=== PATIENT | male | born 1965 | race American Indian/Alaskan Native ===

== ENCOUNTER 2017-09-04 20:30 | Emergency (ER) | payer OTHER ==
[2017-09-04 20:59] VITALS: BMI 24.4
[2017-09-04 21:54] LABS: BASO # 0.02 K/mm3 (0.0-2.0); BASO % 0.3 % (0.0-3.0); EOS # 0.1 (0.0-0.7); GRAN # 4.81 (1.4-6.5); GRAN % 61.1 % (50.0-68.0); LYMPH # 2.5 (1.2-3.4); LYMPH % 31.1 % (22.0-35.0); MEAN CORPUSCULAR HEMOGLOBIN 26.5 pg (25.0-35.0); MEAN CORPUSCULAR HGB CONC 33.5 g/dl (31.0-37.0); MEAN PLATELET VOLUME 9.1 fl (7.0-11.0); MONO # 0.5 (0.1-0.6); MONO % 6.5 % (1.0-6.0); RBC 5.29 10^6/uL (3.5-6.1); RED CELL DISTRIBUTION WIDTH 15.8 % (11.5-14.5); WHITE BLOOD COUNT 7.9 10^3/ul (4.5-11.0)
[2017-09-04 22:04] LABS: ACETAMINOPHEN < 10.0 ug/ml (10.0-20.0); SALICYLATE < 1 mg/dL (2.0-20.0)
[2017-09-04 22:10] LABS: ALBUMIN 4.3 g/dL (3.0-4.8); ALT/SGPT 59 U/L (7-56); AST/SGOT 46 U/L (17-59); BLOOD UREA NITROGEN 16 mg/dL (7-21); CALCIUM 9.2 mg/dL (8.4-10.5); GFR AFRICAN-AMERICAN > 60; GFR NON-AFRICAN AMERICAN > 60
[2017-09-04] MEDS ORDERED: Potassium Chloride 20 mEq ER Tab PO STA (22:16)
--- NOTE | 2017-09-05 03:51 | ED PDOC ---
Arrival/HPI - General Chief Complaint: Anxiety Time Seen by Provider: 09/04/17 21:04 Historian: Patient - History of Present Illness Narrative History of Present Illness (Text): 09/05/17 03:48 52 year old male, with no significant past medical history, who presents to the emergency department set by PMD for psychiatric evaluation. Patient states he hasn't been able sleep for 3 days. Patient states a "guardian is protecting him ". Patient denies any fever, chills, chest pain, shortness of breath, nausea, vomiting, diarrhea, back pain, neck pain, headache, dizziness, suicidal ideation , homicidal ideation, hallucination, or any other complaints. Time/Duration: < week (3 days) Symptom Onset: Gradual Symptom Course: Unchanged Activities at Onset: Light Context: Home Past Medical History - Provider Review Nursing Documentation Reviewed: Yes - Cardiac Hx Hypertension: Yes - Psychiatric Hx Anxiety: Yes Hx Substance Use: No - Suicidal Assessment Feels Threatened In Home Enviroment: No Family/Social History - Physician Review Nursing Documentation Reviewed: Yes Family/Social History: Unknown Family HX Smoking Status: Light Smoker < 10 Cigarettes Daily Hx Alcohol Use: No Hx Substance Use: No Hx Substance Use Treatment: No Allergies/Home Meds Allergies/Adverse Reactions: Allergies JEF Inhibitors Allergy (Verified 09/04/17 21:00) SHORTNESS OF BREATH Home Medications: Home Meds Medication Instructions Recorded Confirmed Aspirin 81 mg PO DAILY 04/17/14 09/04/17 Clonidine HCl [Catapres] 0.3 mg PO TID 04/17/14 09/04/17 Hydrochlorothiazide 25 mg PO DAILY 04/17/14 09/04/17 Review of Systems - Physician Review All systems were reviewed & negative as marked: Yes - Review of Systems Constitutional: Normal Eyes: Normal ENT: Normal Respiratory: Normal. absent: SOB, Cough Cardiovascular: Normal. absent: Chest Pain Gastrointestinal: Normal. absent: Abdominal Pain, Diarrhea, Nausea, Vomiting Genitourinary Male: Normal. absent: Dysuria, Frequency, Hematuria, Urinary Output Changes Musculoskeletal: Normal. absent: Back Pain, Neck Pain Skin: Normal. absent: Rash Neurological: Normal. absent: Headache, Dizziness Endocrine: Normal Hemo/Lymphatic: Normal Psychiatric: Other (Insomnia) Physical Exam Vital Signs Reviewed: Yes Vital Signs Temp Pulse Resp BP Pulse Ox 09/05/17 01:00 82 16 158/88 H 100 05/19/18 00:05 84 202/100 H 09/04/17 23:52 84 202/100 H 09/04/17 21:04 98.3 F 91 H 16 173/118 H 100 Temperature: Afebrile Blood Pressure: Hypertensive Pulse: Regular Respiratory Rate: Normal Appearance: Positive for: Well-Appearing, Non-Toxic, Comfortable Pain Distress: None Mental Status: Positive for: Alert and Oriented X 3 - Systems Exam Head: Present: Atraumatic, Normocephalic Pupils: Present: PERRL Extroacular Muscles: Present: EOMI Conjunctiva: Present: Normal Mouth: Present: Moist Mucous Membranes Neck: Present: Normal Range of Motion Respiratory/Chest: Present: Clear to Auscultation, Good Air Exchange. No: Respiratory Distress, Accessory Muscle Use Cardiovascular: Present: Regular Rate and Rhythm, Normal S1, S2. No: Murmurs Abdomen: No: Tenderness, Distention, Peritoneal Signs Back: Present: Normal Inspection Upper Extremity: Present: Normal Inspection. No: Cyanosis, Edema Lower Extremity: Present: Normal Inspection. No: Edema Neurological: Present: GCS=15, CN II-XII Intact. No: Speech Normal (Speech is pressured) Skin: Present: Warm, Dry, Normal Color. No: Rashes Psychiatric: Present: Alert, Oriented x 3, Normal Insight, Normal Concentration Medical Decision Making ED Course and Treatment: 09/05/17 03:53 Impression: 52 year old male presents to the emergency department sent in by PMD for psychiatric evaluation. Plan: -- EKG -- Chest X-ray -- Catapres -- Ativan --Potassium Chloride -- Urinalysis -- Reassess and disposition Progress Notes: Patient is medically cleared. Chest X-ray Reviewed, shows negative results. - Lab Interpretations Lab Results: 09/04/17 21:44 09/04/17 21:44 Lab Results 09/04/17 21:44: Alcohol, Quantitative < 10 09/04/17 21:44: Salicylates < 1 L, Acetaminophen < 10.0 L 09/04/17 21:44: Sodium 147, Potassium 3.1 L, Chloride 103, Carbon Dioxide 32, Anion Gap 16, BUN 16, Creatinine 1.1, Est GFR ( Amer) > 60, Est GFR (Non- Af Amer) > 60, Random Glucose 92, Calcium 9.2, Total Bilirubin 0.4, AST 46, ALT 59 H, Alkaline Phosphatase 85, Total Protein 8.5 H, Albumin 4.3, Globulin 4.2, Albumin/Globulin Ratio 1.0 L 09/04/17 21:44: WBC 7.9, RBC 5.29, Hgb 14.0, Hct 41.8 L, MCV 79.0 L, MCH 26.5, MCHC 33.5, RDW 15.8 H, Plt Count 364, MPV 9.1, Gran % 61.1, Lymph % (Auto) 31.1 , [place] % (Auto) 6.5 H, Eos % (Auto) 1.0 L, Baso % (Auto) 0.3, Gran # 4.81, Lymph # (Auto) 2.5, [place] # (Auto) 0.5, Eos # (Auto) 0.1, Baso # (Auto) 0.02 - RAD Interpretation Radiology Orders: 09/05/17 03:13 CHEST PORTABLE [RAD] Stat - Medication Orders Current Medication Orders: Discontinued Medications Clonidine HCl (Catapres) 0.2 mg PO STAT STA Stop: 09/04/17 23:53 Last Admin: 09/05/17 00:05 Dose: 0.2 mg MAR Pulse and Blood Pressure Document 09/05/17 00:05 VIKTORIA (Rec: 09/05/17 00:10 VIKTORIA [id number]) Pulse Pulse Rate (60-90) 84 Blood Pressure Blood Pressure (100/60-150/90) 202/100 Lorazepam (Ativan) 1 mg PO STAT STA PRN Reason: Protocol Stop: 09/04/17 23:39 Last Admin: 09/04/17 23:45 Dose: 1 mg Potassium Chloride (K-Dur 20 Meq Er Tab) 40 meq PO STAT STA Stop: 09/04/17 22:17 Last Admin: 09/04/17 22:42 Dose: 40 meq - Transfer of Care Patient signed out to Dr:: Donte Other: [facility] screening - Scribe Statement The provider has reviewed the documentation as recorded by the Scribe Agnes Piña All medical record entries made by the Scribe were at my direction and personally dictated by me. I have reviewed the chart and agree that the record accurately reflects my personal performance of the history, physical exam, medical decision making, and the department course for this patient. I have also personally directed, reviewed, and agree with the discharge instructions and disposition. Disposition/Present on Arrival - Present on Arrival Any Indicators Present on Arrival: No History of DVT/PE: No History of Uncontrolled Diabetes: No Urinary Catheter: No History of Decub. Ulcer: No History Surgical Site Infection Following: None - Disposition Have Diagnosis and Disposition been Completed?: Yes Diagnosis: Acute psychosis Disposition Time: 07:00 Condition: STABLE Referrals: Bruce Romo MD [Primary Care Provider] - Follow up with primary Forms: [employer] (Thai)
--- NOTE | 2017-09-05 10:27 | RAD ---
HISTORY: medical clearance COMPARISON: No prior. FINDINGS: LUNGS: No active pulmonary disease. PLEURA: No significant pleural effusion identified, no pneumothorax apparent. CARDIOVASCULAR: No radiographic findings to suggest acute or significant cardiovascular disease. OSSEOUS STRUCTURES: No significant abnormalities. VISUALIZED UPPER ABDOMEN: Normal. OTHER FINDINGS: None. IMPRESSION: No active disease.
--- NOTE | 2017-09-05 12:52 | ED PDOC ---
Physical Exam Vital Signs Reviewed: Yes Vital Signs Temp Pulse Resp BP Pulse Ox 09/05/17 12:11 83 183/107 H 09/05/17 12:01 83 18 183/107 H 98 09/05/17 10:47 76 18 151/78 H 98 09/05/17 08:43 76 16 152/80 H 98 09/05/17 01:00 82 16 158/88 H 100 09/05/17 00:05 84 202/100 H 09/04/17 23:52 84 202/100 H 09/04/17 21:04 98.3 F 91 H 16 173/118 H 100 Temperature: Afebrile Blood Pressure: Normal Pulse: Regular Respiratory Rate: Normal Appearance: Positive for: Well-Appearing, Non-Toxic, Comfortable Pain Distress: None Mental Status: Positive for: Alert and Oriented X 3 - Systems Exam Head: Present: Atraumatic, Normocephalic Pupils: Present: PERRL Extroacular Muscles: Present: EOMI Conjunctiva: Present: Normal Mouth: Present: Moist Mucous Membranes Neck: Present: Normal Range of Motion Respiratory/Chest: Present: Clear to Auscultation, Good Air Exchange. No: Respiratory Distress, Accessory Muscle Use Cardiovascular: Present: Regular Rate and Rhythm, Normal S1, S2. No: Murmurs Abdomen: No: Tenderness, Distention, Peritoneal Signs Back: Present: Normal Inspection Upper Extremity: Present: Normal Inspection. No: Cyanosis, Edema Lower Extremity: Present: Normal Inspection. No: Edema Neurological: Present: GCS=15, CN II-XII Intact, Speech Normal, Motor Func Grossly Intact, Normal Sensory Function, Normal Cerebellar Funct, Norm Deep Tendon Reflexes, Gait Normal, Memory Normal, Normal 2Pt Descrimination Skin: Present: Warm, Dry, Normal Color. No: Rashes Psychiatric: Present: Alert, Oriented x 3, Normal Insight, Normal Concentration Medical Decision Making ED Course and Treatment: 52 y/o male w/ pmhx of anxiety , HTn presents evidently w/ paranoid ideation ststements and questiobale homicidal ideation as per inital FAVIAN fuentesnner who saw him upon his arrival. Pt continues to deny any si/ah/vh /hi / corporeal complaint and doesn't understad why his pmd sent him for evaluation and he's refusing to give ua / utox as part of his medical clearance workup , stating that this is actually against his cheondoism beliefs. Pt lacks insight as to his statements that led to his disposition here and denies them . Dr. Bloom and PES worker were informed of his ststements and his refusal , and have given their ok to accept patient to [facility] as long as his refusal is documented and faxed to [facility]. Then suddenly patiently relented and stted that he would give urine for examination. Pt remains on 1:1 observation , has been fed, and has his regular medicines on regular dosing schedule. 09/05/17 12:42 09/06/17 07:31 [facility] screened patient and patient was psychiatrically cleared for discharge and discharged with resources. - Lab Interpretations Lab Results: 09/04/17 21:44 09/04/17 21:44 Lab Results 09/04/17 21:44: Alcohol, Quantitative < 10 09/04/17 21:44: Salicylates < 1 L, Acetaminophen < 10.0 L 09/04/17 21:44: Sodium 147, Potassium 3.1 L, Chloride 103, Carbon Dioxide 32, Anion Gap 16, BUN 16, Creatinine 1.1, Est GFR ( Amer) > 60, Est GFR (Non- Af Amer) > 60, Random Glucose 92, Calcium 9.2, Total Bilirubin 0.4, AST 46, ALT 59 H, Alkaline Phosphatase 85, Total Protein 8.5 H, Albumin 4.3, Globulin 4.2, Albumin/Globulin Ratio 1.0 L 09/04/17 21:44: WBC 7.9, RBC 5.29, Hgb 14.0, Hct 41.8 L, MCV 79.0 L, MCH 26.5, MCHC 33.5, RDW 15.8 H, Plt Count 364, MPV 9.1, Gran % 61.1, Lymph % (Auto) 31.1 , [place] % (Auto) 6.5 H, Eos % (Auto) 1.0 L, Baso % (Auto) 0.3, Gran # 4.81, Lymph # (Auto) 2.5, [place] # (Auto) 0.5, Eos # (Auto) 0.1, Baso # (Auto) 0.02 - RAD Interpretation Radiology Orders: 09/05/17 03:13 CHEST PORTABLE [RAD] Stat - Medication Orders Current Medication Orders: Discontinued Medications Amlodipine Besylate (Norvasc) 10 mg PO STAT STA Stop: 09/05/17 12:07 Last Admin: 09/05/17 12:11 Dose: 10 mg MAR Blood Pressure Document 09/05/17 12:11 [facility] (Rec: 09/05/17 12:11 [facility] [id number]) Blood Pressure Blood Pressure (100/60-150/90 mm Hg) 183/107 Clonidine HCl (Catapres) 0.2 mg PO STAT STA Stop: 09/04/17 23:53 Last Admin: 09/05/17 00:05 Dose: 0.2 mg MAR Pulse and Blood Pressure Document 09/05/17 00:05 VIKTORIA (Rec: 09/05/17 00:10 VIKTORIA [id number]) Pulse Pulse Rate (60-90 beats/min) 84 Blood Pressure Blood Pressure (100/60-150/90 mm Hg) 202/100 Clonidine HCl (Catapres) 0.3 mg PO ONCE ONE Stop: 09/05/17 12:05 Last Admin: 09/05/17 12:11 Dose: 0.3 mg MAR Pulse and Blood Pressure Document 09/05/17 12:11 [facility] (Rec: 09/05/17 12:11 [facility] [id number]) Pulse Pulse Rate (60-90 beats/min) 83 Blood Pressure Blood Pressure (100/60-150/90 mm Hg) 183/107 Lorazepam (Ativan) 1 mg PO STAT STA PRN Reason: Protocol Stop: 09/04/17 23:39 Last Admin: 09/04/17 23:45 Dose: 1 mg Potassium Chloride (K-Dur 20 Meq Er Tab) 40 meq PO STAT STA Stop: 09/04/17 22:17 Last Admin: 09/04/17 22:42 Dose: 40 meq Disposition/Present on Arrival - Present on Arrival Any Indicators Present on Arrival: No History of DVT/PE: No History of Uncontrolled Diabetes: No Urinary Catheter: No History of Decub. Ulcer: No History Surgical Site Infection Following: None - Disposition Have Diagnosis and Disposition been Completed?: Yes Diagnosis: Acute psychosis Disposition: HOME/ ROUTINE Disposition Time: 19:50 Patient Plan: Discharge Condition: STABLE Discharge Instructions (ExitCare): Generalized Anxiety Disorder, Insomnia (DC) , Tips for Getting Better Sleep Print Language: SAO TOMEAN Additional Instructions: Make sure to see your doctor in 1-2 days DRINK PLENTY OF FLUIDS take your medications as prescribed RETURN TO ED IF worse pain, cant breath, persistent vomiting, high fever >101- 102 for hours, altered behavior, slurr speech, facial changes, focal weakness ( arm/leg or both), suicidal/homicidal ideations, severe depression, hallucinations, unable to urinate, heavy/persistent bleeding, passing out, chest pain, or other medical emergencies Referrals: Bruce Romo MD [Primary Care Provider] - Follow up with primary Forms: [employer] (Tongan)
--- NOTE | 2017-09-05 15:22 | CARD ---
APPROVED REPORT EKG Measurement Heart [id number] <Conclusion> Normal sinus rhythm Possible Left atrial enlargement Left axis deviation Left ventricular hypertrophy Nonspecific ST and T wave abnormality Abnormal ECG
[2017-09-05 15:54] LABS: URINE BILIRUBIN NEGATIVE (NEGATIVE); URINE BLOOD NEGATIVE (NEGATIVE); URINE GLUCOSE (UA) 100 mg/dL (NEGATIVE); URINE LEUKOCYTE ESTERASE NEGATIVE Leu/uL (NEGATIVE); URINE PROTEIN 30 mg/dL (<30 mg/dL); URINE UROBILINOGEN 0.2 E.U./dL (<1 E.U./dL)
[2017-09-05 15:57] LABS: URINE APPEARANCE CLEAR (CLEAR); URINE COLOR YELLOW (YELLOW)
[2017-09-05 16:10] LABS: URINE EPITHELIAL CELLS 0 - 2 /hpf (0-5); URINE RBC 0 - 2 /hpf (0-2); URINE WBC 0 - 2 /hpf (0-6)
[2017-09-05 16:29] LABS: BARBITURATES, UR NEGATIVE (NEGATIVE); BENZODIAZEPINES, UR NEGATIVE (NEGATIVE); OPIATES, UR POSITIVE (NEGATIVE); PHENCYCLIDINE, UR NEGATIVE (NEGATIVE)
[2017-09-05 19:07] VITALS: BP 148/78; PULSE 70; RESP 17; TEMP 98; O2SAT 98
== END 2017-09-05 19:08 | disposition home or self-care (01) ==
LOC: ED 20:30
DX: F23 Brief psychotic disorder (principal); I10 Essential (primary) hypertension; F41.9 Anxiety disorder, unspecified; F17.210 Nicotine dependence, cigarettes, uncomplicated